=== PATIENT | male | born 1985 | race Two or more races ===

== ENCOUNTER 2016-08-26 21:21 | Emergency (ER) | payer MEDICAID ==
--- NOTE | 2016-08-26 22:44 | EDM.PDOC ---
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 2d ago when grease landed on the top of his L hand, inc'd pain today and could not work works 12h/d no f/c/d inc'd pain with flexion or touching dorsum of hand, pt thinks it may be a little bit more red today c/w yesterday - Related Data Allergies Allergy/AdvReac Type Severity Reaction Status Date / Time No Known Allergies Allergy Verified 08/26/16 21:59 Home Meds: Home Meds Cephalexin 500 mg PO QID #20 tablet 08/26/16 [Rx] Past Medical History HEENT History: Reports: Sinusitis Other HEENT History: LYMPHNOID CA Respiratory History: Reports: Bronchitis, recurrent Psychiatric History: Reports: Anxiety, Depression Oncologic (Cancer) History: Reports: Lymphoma - Past Surgical History Other HEENT Surgeries/Procedures: LYMPHNOID SURGERY Social & Family History - Family History Family Medical History: Noncontributory - Tobacco Use Smoking Status *Q: Current Every Day Smoker Years of Tobacco use: 20 Packs/Tins Daily: 2 - Recreational Drug Use Recreational Drug Use: No ED ROS GENERAL - Review of Systems Review Of Systems: See Below Constitutional: Reports: no symptoms HEENT: Reports: No symptoms Respiratory: Reports: No Symptoms Cardiovascular: Reports: No symptoms Endocrine: Reports: no symptoms GI/Abdominal: Reports: No symptoms : Reports: no symptoms Musculoskeletal: Reports: no symptoms Skin: Reports: wound Neurological: Reports: No Symptoms Psychiatric: Reports: No symptoms Hematologic/Lymphatic: Reports: no symptoms Immunologic: Reports: no symptoms Free text/narrative/comment: he has been putting H2O2 on the blisters ED EXAM, GENERAL - Physical Exam Exam: See Below Exam Limited By: No limitations General Appearance: alert, WD/WN, no apparent distress Extremities: other (dorsum of L hand shows 3 blisters of 0.75 cm, 2 are denuded , 1 has epithelium still present, all are dry, there is slight red and slight swell out 0.5 cm from the blisters without warmth that seem more c/w overuse than infection, there is nospecific slight tender of all 5 extensor tendons even though blisters are over 4th and 5th extensor tendons) Course - Vital Signs Last Recorded V/S: Last Vital Signs Temp 36.9 C 08/26/16 22:45 Pulse 75 08/26/16 22:45 Resp 14 08/26/16 22:45 BP 138/72 08/26/16 22:45 Pulse Ox 100 08/26/16 22:45 - Re-Assessments/Exams Free Text/Narrative Re-Assessment/Exam: 08/26/16 22:50 cannot exclude early cellulitis, yet there are atypical features, no fever here Departure - Departure Time of Disposition: 22:50 Disposition: Home, Self-Care 01 Condition: good Clinical Impression: Second degree burn of hand, Overuse syndrome Prescriptions: Cephalexin 500 mg PO QID #20 tablet Forms: Return to Work/School Form Additional Instructions: For infection, take cephalexin 500 mg 1 tab 4 times a day for 5 days. For pain and inflammation, take ibuprofen 200 mg 3 tabs and acetaminophen 325 mg 2 tabs 4 times a day for 5 days. No work for the next 2 days. Return to ED if your symptoms get worse, including increase in redness and pain despite the meds. See your doctor in 2 days. Call your Physician or Return to Emergency Department if: * Your condition worsens in any way. * You develop fever greater than 100.4. * You have vomiting that does not stop with medications. * You have pain that is not controlled with medications.
[2016-08-26] MEDS ORDERED: Cephalexin 500 MG Cap PO ONE (22:52)
[2016-08-26] MEDS ORDERED: Ketorolac 60 MG/2 ML SDV IM ONE (22:54)
[2016-08-26 23:20] VITALS: BP 126/70
== END 2016-08-26 23:15 | disposition home or self-care (01) ==
LOC: FB.ED 21:21
DX: T23.202A Burn of second degree of left hand, unspecified site, initial encounter (principal); F41.9 Anxiety disorder, unspecified; F32.9 Major depressive disorder, single episode, unspecified; F17.210 Nicotine dependence, cigarettes, uncomplicated; Z98.890 Other specified postprocedural states; X12.XXXA Contact with other hot fluids, initial encounter; Y92.000 Kitchen of unspecified non-institutional (private) residence as the place of occurrence of the external cause; Y99.0 Civilian activity done for income or pay
CPT/HCPCS: 96372; 99283; A9270; J1885

== ENCOUNTER 2019-07-30 18:36 | Emergency (ER) | payer MEDICAID ==
--- NOTE | 2019-07-30 19:19 | EDM.PDOC ---
ED HPI GENERAL MEDICAL PROBLEM - General Stated Complaint: SWOLLEN LYMPNODES, COUGHING UP BLOOD Time Seen by Provider: 07/30/19 19:05 Source of Information: Reports: Patient History Limitations: Reports: No Limitations - History of Present Illness INITIAL COMMENTS - FREE TEXT/NARRATIVE: 34-year-old male who reports 4 days ago began with cough and headache and then swollen lymph nodes on the left side of his neck and then on the right side of his neck and he developed aching all over, particularly all along his back. He also days ago had(that was red blood all through his sputum. He has had none since that time. No nausea or vomiting. He has had no objective fevers with chills. His symptoms seem to be worsening with time. He reports that his pain as an 8/10. It is aching and sore and all over. The throat pain is much worse with swallowing and he finds it difficult to eat or drink because of this. He also reports decreased urine output and decreased stream but or burning with urination. Area noted. He has had swollen areas on his left chest and axilla area for the past 3 years and apparently was seen at that time by Dr. Escoto and he was supposed to get follow-up in regard to his followed but he has never followed up. He reports no recent travel and he denies any contact with anyone who has had recent travel or known Coronavirus 19. There are no other associated signs or symptoms. There are no other modifying factors. 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) generalize body aches Pain Score (Numeric/FACES): 8 - Related Data Allergies Allergy/AdvReac Type Severity Reaction Status Date / Time No Known Allergies Allergy Verified 07/30/19 19:33 Past Medical History HEENT History: Reports: Sinusitis Respiratory History: Reports: Bronchitis, Recurrent Psychiatric History: Reports: Anxiety, Depression Oncologic (Cancer) History: Reports: Lymphoma - Past Surgical History Oncologic Surgical History: Reports: Other (See Below) (Resection of lymph nodes /lymphoma from right neck) Social & Family History - Tobacco Use Smoking Status *Q: Current Every Day Smoker - Caffeine Use Caffeine Use: Reports: Coffee, Energy Drinks, Soda, Tea - Alcohol Use Alcohol Use History: No Alcohol Use in Last Twelve Months: No Alcohol Use Comment: No alcohol use for greater than 1 year. - Recreational Drug Use Recreational Drug Use: Yes Drug Use in Last 12 Months: Yes Recreational Drug Type: Reports: Marijuana/Hashish - Living Situation & Occupation Living situation: Reports: Single Occupation: Unemployed ED ROS GENERAL - Review of Systems Review Of Systems: See Below Constitutional: Reports: Fever, Chills, Malaise, Fatigue HEENT: Reports: Throat Pain, Throat Swelling (Swollen lymph nodes in neck), Other (No nosebleeds no nasal congestion.) Respiratory: Reports: Shortness of Breath, Cough Cardiovascular: Reports: Lightheadedness. Denies: Chest Pain, Edema GI/Abdominal: Reports: Abdominal Pain (Some left upper quadrant pain) : Reports: Other (Decreased stream and decreased amount). Denies: Dysuria, Flank Pain, Frequency, Hematuria, Incontinence, Pain, Urgency Musculoskeletal: Reports: Other (Generalized body aches) Skin: Reports: No Symptoms Neurological: Reports: Headache Hematologic/Lymphatic: Reports: Swollen Glands Immunologic: Reports: No Symptoms ED EXAM, GENERAL - Physical Exam Exam: See Below Exam Limited By: No Limitations General Appearance: Alert, WD/WN, Moderate Distress, Other (He is awake and alert. He is fluent and appropriate in his conversation.) Eye Exam: Bilateral Eye: EOMI, Normal Inspection, PERRL, Other (He has some photophobia) Ears: Normal External Exam, Normal Canal, Hearing Grossly Normal, Normal TMs Ear Exam: Bilateral Ear: Auricle Normal, Canal Normal, TM normal Nose: Normal Inspection, Normal Mucosa, No Blood Throat/Mouth: Normal Lips, Normal Voice, No Airway Compromise, Other (Posterior pharyngeal erythema. No evidence of peritonsillar abscess.) Head: Atraumatic, Normocephalic Neck: Supple, Full Range of Motion, Lymphadenopathy (R), Lymphadenopathy (L), Tender Lateral (Bilateral). No: Tender Midline Respiratory/Chest: No Respiratory Distress, No Accessory Muscle Use, Chest Non- Tender, Other (Air movement seems to be somewhat decreased but symmetric.). No : Crackles, Rales, Rhonchi Cardiovascular: Normal Peripheral Pulses, No Edema, No Murmur, Tachycardia Peripheral Pulses: 2+: Radial (L), Radial (R), Dorsalis Pedis (L), Dorsalis Pedis (R) GI/Abdominal: Normal Bowel Sounds, Soft, Pelvis Stable, Tender (Mildly tender in left upper quadrant. I can discern no splenomegaly) Back Exam: Normal Inspection, Paraspinal Tenderness (Diffuse and all along his lumbar and thoracic spine areas.) Extremities: Normal Inspection, Normal Range of Motion, Non-Tender, No Pedal Edema, Normal Capillary Refill Neurological: Alert, Oriented, CN II-XII Intact, Normal Cognition, No Motor/ Sensory Deficits Skin Exam: Warm, Dry, Intact, Normal Color, No Rash Lymphatic: Adenopathy (Bilateral, tender anterior cervical adenopathy.) Course - Vital Signs Last Recorded V/S: Last Vital Signs Temp 36.8 C 07/30/19 21:30 Pulse 109 H 07/30/19 21:30 Resp 16 07/30/19 21:30 BP 110/56 L 07/30/19 21:30 Pulse Ox 99 07/30/19 21:30 - Orders/Labs/Meds Orders: Active Orders 24 hr Category Date Time Status Chest 2V [CR] Stat Exams 07/30/19 19:48 Taken Sodium Chloride 0.9% [Normal Saline] 1,000 ml Med 07/30/19 21:17 Active IV .BOLUS Sodium Chloride 0.9% [Normal Saline] 1,000 ml Med 07/30/19 20:00 Active IV ASDIRECTED Sodium Chloride 0.9% [Saline Flush] Med 07/30/19 19:48 Active 10 ml FLUSH ASDIRECTED PRN Isolation [COMM] Routine Oth 07/30/19 19:49 Ordered Peripheral IV Insertion Adult [OM.PC] Routine Oth 07/30/19 19:48 Ordered Medication Orders Sodium Chloride (Normal Saline) 1,000 mls @ 150 mls/hr IV ASDIRECTED PRASANNA Last Infusion: 07/30/19 21:45 Dose: 999 mls/hr Admin: 07/30/19 21:17 Dose: 150 mls/hr Sodium Chloride (Normal Saline) 1,000 mls @ 999 mls/hr IV .BOLUS ONE Stop: 07/30/19 22:17 Last Admin: 07/30/19 21:46 Dose: Sodium Chloride (Saline Flush) 10 ml FLUSH ASDIRECTED PRN PRN Reason: Keep Vein Open Labs: Laboratory Tests 07/30/19 07/30/19 07/30/19 Range/Units 20:05 20:05 20:05 WBC 8.3 (4.5-12.0) X10-3/uL RBC 4.36 (4.30-5.75) x10(6)uL Hgb 13.4 L (13.5-17.8) g/dL Hct 38.8 (30.0-51.3) % MCV 88.9 (80-96) fL MCH 30.7 (27.7-33.6) pg MCHC 34.5 (32.2-35.4) g/dL RDW 12.4 (11.5-15.5) % Plt Count 185 (125-369) X10(3)uL MPV 7.8 (7.4-10.4) fL Neut % (Auto) 79.9 (46-82) % Lymph % (Auto) 5.6 L (13-37) % [place] % (Auto) 10.8 (4-12) % Eos % (Auto) 3 (1.0-5.0) % Baso % (Auto) 1 (0-2) % Neut # (Auto) 6.6 (1.6-8.3) # Lymph # (Auto) 0.5 L (0.6-5.0) # [place] # (Auto) 0.9 (0.0-1.3) # Eos # (Auto) 0.2 (0.0-0.8) # Baso # (Auto) 0.1 (0.0-0.2) # Sodium 133 L (135-145) mmol/L Potassium 3.7 (3.5-5.3) mmol/L Chloride 96 L (100-110) mmol/L Carbon Dioxide 29 (21-32) mmol/L BUN 12 (7-18) mg/dL Creatinine 0.9 (0.70-1.30) mg/dL Est Cr Clr Drug Dosing 129.33 mL/min Estimated GFR (MDRD) > 60 (>60) BUN/Creatinine Ratio 13.3 (9-20) Glucose 107 (80-116) mg/dL Calcium 7.8 L (8.6-10.2) mg/dL Magnesium 1.6 L (1.8-2.5) mg/dL Total Bilirubin 0.3 (0.1-1.3) mg/dL AST 24 (5-25) IU/L ALT 29 (12-36) U/L Alkaline Phosphatase 72 (56-112) IU/L C-Reactive Protein 24.1 H* (0.5-0.9) mg/dL Total Protein 7.7 (6.0-8.0) g/dL Albumin 3.0 L (3.5-5.2) g/dL Globulin 4.7 g/dL Albumin/Globulin Ratio 0.6 Urine Color (YELLOW) Urine Appearance (CLEAR) Urine pH (5.0-6.5) Ur Specific [place] (1.010-1.025) Urine Protein (NEGATIVE) mg/dL Urine Glucose (UA) (NORMAL) mg/dL Urine Ketones (NEGATIVE) mg/dL Urine Occult Blood (NEGATIVE) Urine Nitrite (NEGATIVE) Urine Bilirubin (NEGATIVE) Urine Urobilinogen (NEGATIVE) mg/dL Ur Leukocyte Esterase (NEGATIVE) Urine RBC (0-5) Urine WBC (0-5) Ur Squamous Epith Cells (NS,R,O) Urine Bacteria (NS) 07/30/19 Range/Units 21:20 WBC (4.5-12.0) X10-3/uL RBC (4.30-5.75) x10(6)uL Hgb (13.5-17.8) g/dL Hct (30.0-51.3) % MCV (80-96) fL MCH (27.7-33.6) pg MCHC (32.2-35.4) g/dL RDW (11.5-15.5) % Plt Count (125-369) X10(3)uL MPV (7.4-10.4) fL Neut % (Auto) (46-82) % Lymph % (Auto) (13-37) % [place] % (Auto) (4-12) % Eos % (Auto) (1.0-5.0) % Baso % (Auto) (0-2) % Neut # (Auto) (1.6-8.3) # Lymph # (Auto) (0.6-5.0) # [place] # (Auto) (0.0-1.3) # Eos # (Auto) (0.0-0.8) # Baso # (Auto) (0.0-0.2) # Sodium (135-145) mmol/L Potassium (3.5-5.3) mmol/L Chloride (100-110) mmol/L Carbon Dioxide (21-32) mmol/L BUN (7-18) mg/dL Creatinine (0.70-1.30) mg/dL Est Cr Clr Drug Dosing mL/min Estimated GFR (MDRD) (>60) BUN/Creatinine Ratio (9-20) Glucose (80-116) mg/dL Calcium (8.6-10.2) mg/dL Magnesium (1.8-2.5) mg/dL Total Bilirubin (0.1-1.3) mg/dL AST (5-25) IU/L ALT (12-36) U/L Alkaline Phosphatase (56-112) IU/L C-Reactive Protein (0.5-0.9) mg/dL Total Protein (6.0-8.0) g/dL Albumin (3.5-5.2) g/dL Globulin g/dL Albumin/Globulin Ratio Urine Color Yellow (YELLOW) Urine Appearance Clear (CLEAR) Urine pH 5.0 (5.0-6.5) Ur Specific [place] 1.020 (1.010-1.025) Urine Protein 30 H (NEGATIVE) mg/dL Urine Glucose (UA) Normal (NORMAL) mg/dL Urine Ketones 15 H (NEGATIVE) mg/dL Urine Occult Blood Trace (NEGATIVE) Urine Nitrite Negative (NEGATIVE) Urine Bilirubin Small H (NEGATIVE) Urine Urobilinogen 8 H (NEGATIVE) mg/dL Ur Leukocyte Esterase Negative (NEGATIVE) Urine RBC 0-5 (0-5) Urine WBC 0-5 (0-5) Ur Squamous Epith Cells Occasional (NS,R,O) Urine Bacteria Rare H (NS) Meds: Medications Generic Name Dose Route Start Last Admin Trade Name Freq PRN Reason Stop Dose Admin Sodium Chloride 1,000 mls @ 150 mls/hr 07/30/19 20:00 07/30/19 21:45 Normal Saline IV 999 mls/hr ASDIRECTED PRASANNA Infusion Sodium Chloride 1,000 mls @ 999 mls/hr 07/30/19 21:17 07/30/19 21:46 Normal Saline IV 07/30/19 22:17 Not Given .BOLUS ONE Sodium Chloride 10 ml 07/30/19 19:48 Saline Flush FLUSH ASDIRECTED PRN Keep Vein Open Discontinued Medications Generic Name Dose Route Start Last Admin Trade Name Freq PRN Reason Stop Dose Admin Acetaminophen 1,000 mg 07/30/19 19:50 07/30/19 20:06 Tylenol Extra Strength PO 07/30/19 19:51 1,000 mg ONETIME ONE Administration Ceftriaxone Sodium 2 gm 07/30/19 20:36 07/30/19 20:51 Rocephin IVPUSH 07/30/19 20:37 2 gm ONETIME ONE Administration Dexamethasone 8 mg 07/30/19 20:42 07/30/19 20:50 Dexamethasone IVPUSH 07/30/19 20:43 8 mg ONETIME ONE Administration Sodium Chloride 1,000 mls @ 999 mls/hr 07/30/19 19:50 07/30/19 20:04 Normal Saline IV 07/30/19 20:50 999 mls/hr .BOLUS ONE Administration Magnesium Sulfate 2 gm/ Premix 50 mls @ 150 mls/hr 07/30/19 20:36 07/30/19 21 :15 IV 07/30/19 20:55 150 mls/hr ONETIME ONE Administration Ketorolac Tromethamine 30 mg 07/30/19 19:50 07/30/19 20:06 Toradol IVPUSH 07/30/19 19:51 30 mg ONETIME ONE Administration Penicillin G Procaine/Benzathine 2.4 millunits 07/30/19 20:42 07/30/19 20:49 Bicillin C-R 600/600 IM 07/30/19 20:43 2.4 millunits ONETIME ONE Administration - Radiology Interpretation Free Text/Narrative:: Chest x-ray PA and lateral showed no acute disease. - Re-Assessments/Exams Free Text/Narrative Re-Assessment/Exam: 07/30/19 20:38: Strep screen was positive. His CRP was elevated but his other lab tests are fairly reassuring except for a slightly decreased magnesium. His influenza screen was negative. He feels hungry now and wants something to eat. He has received Toradol IV and normal 1 g by mouth. He also has received about 250 mL of the IV bolus of normal saline. I will give the patient Rocephin 2 g IV magnesium 2 g IV. I will also give the patient Decadron 8 mg IV. After the IV fluid hydration and the IV medications, I feel that he will be able to be discharged and I will also give him Bicillin CR 2.4 million units IM prior to discharge. 07/30/19 21:15: Patient feels improved. He has eaten a snack and tolerated that well. He'll has pain with swallowing. His pulse rate is still 109 but his temp is 98.2. I will plan on giving him another liter of normal saline as a bolus and then discharging the patient. He is comfortable with this plan for discharge. Departure - Departure Time of Disposition: 22:30 Disposition: Home, Self-Care 01 Condition: Good (Improved) Clinical Impression: Acute streptococcal pharyngitis, Dehydration, moderate - Discharge Information Instructions: Strep Throat, [id number], Dehydration, Adult, [id number] Referrals: PCP,None [Primary Care Provider] - Additional Instructions: You have strep throat. You were also dehydrated. You were treated with antibiotics in the emergency department including a penicillin injection. These are all the antibiotics that you should require to treat the strep throat. You were also given Decadron, a steroid medication that is an anti-inflammatory medication, and that should help decrease the swelling and the pain in your throat. You need to rest. You need to increase your fluid intake. You should make take ibuprofen 800 mg by mouth every 8 hours as needed for fever or pain. You may also take Tylenol 1000 mg by mouth every 6 hours as needed for fever or pain. Back to the emergency department for trouble breathing, unrelenting vomiting or any other concerning sign or symptom. Sepsis Event Note - Focused Exam Vital Signs: Vital Signs Temp Temp Pulse Resp BP Pulse Ox 07/30/19 21:30 36.8 C 109 H 16 110/56 L 99 07/30/19 19:25 38.0 C 111 H 18 122/72 100 Date Exam was Performed: 07/30/19 Time Exam was Performed: 21:59 - My Orders Last 24 Hours: My Active Orders 07/30/19 19:48 Chest 2V [CR] Stat Sodium Chloride 0.9% [Saline Flush] 10 ml FLUSH ASDIRECTED PRN Peripheral IV Insertion Adult [OM.PC] Routine 07/30/19 19:49 Isolation [COMM] Routine 07/30/19 20:00 Sodium Chloride 0.9% [Normal Saline] 1,000 ml IV ASDIRECTED 07/30/19 21:17 Sodium Chloride 0.9% [Normal Saline] 1,000 ml IV .BOLUS - Assessment/Plan Last 24 Hours: My Active Orders 07/30/19 19:48 Chest 2V [CR] Stat Sodium Chloride 0.9% [Saline Flush] 10 ml FLUSH ASDIRECTED PRN Peripheral IV Insertion Adult [OM.PC] Routine 07/30/19 19:49 Isolation [COMM] Routine 07/30/19 20:00 Sodium Chloride 0.9% [Normal Saline] 1,000 ml IV ASDIRECTED 07/30/19 21:17 Sodium Chloride 0.9% [Normal Saline] 1,000 ml IV .BOLUS
[2019-07-30] MEDS ORDERED: Sodium Chloride 0.9% 10 ML Syringe FLUSH PRN (19:48)
[2019-07-30] MEDS ORDERED: Sodium Chloride 0.9% 1,000 ML IV ONE ×2 (19:50→21:17)
[2019-07-30] MEDS ORDERED: Acetaminophen 500 MG Tab PO ONE (19:50)
[2019-07-30] MEDS ORDERED: Ketorolac 30 MG/ML SDV IVPUSH ONE (19:50)
[2019-07-30] MEDS ORDERED: Sodium Chloride 0.9% 1,000 ML IV SCH (20:00)
[2019-07-30] MEDS ORDERED: cefTRIAXone 2 GM Vial IVPUSH ONE (20:36)
[2019-07-30] MEDS ORDERED: Magnesium Sulfate/Water 2 GM in Premix Bag 1 BAG IV ONE (20:36)
[2019-07-30] MEDS ORDERED: Dexamethasone 4 MG/ML SDV IVPUSH ONE (20:42)
[2019-07-30] MEDS ORDERED: Penicillin G Benzathine/Procaine 600-600 1.2 Millunits/2 ML Syringe IM ONE (20:42)
[2019-07-30 22:47] VITALS: BP 120/68; PULSE 95
--- NOTE | 2019-07-31 11:25 | CR ---
INDICATION: Difficulty breathing. CHEST TWO VIEWS: PA and lateral views of the chest were obtained 07/30/2019-no comparisons. Dextroconcave scoliosis of moderate degree is noted in the mid thoracic spine. The heart and mediastinum are unremarkable. Slightly heavy markings are noted at the lung bases, for the most part posteriorly raising question of minimal patchy bronchopneumonia in those areas versus fibrosis. No consolidating pneumonia or effusion was seen. Also noted is mild bronchial wall cuffing in the lower lung benedict, which may be on the basis of active peribronchial disease and/or fibrosis and should be correlated clinically. IMPRESSION: 1. Somewhat heavy markings with bronchial wall cuffing in the lower lung benedict raising question of active peribronchial disease-correlate clinically. 2. Scoliosis. MTDD
== END 2019-07-30 22:45 | disposition home or self-care (01) ==
LOC: FB.ED 18:36
DX: J02.0 Streptococcal pharyngitis (principal); E86.0 Dehydration; F17.200 Nicotine dependence, unspecified, uncomplicated
CPT/HCPCS: 36415; 71046; 80053; 81001; 83735; 85025; 86140; 87804; 87804-59; 87880-QW; 96361; 96365; 96372; 96375; 99284-25; A9270-GY; J0558; J0696; J1100; J1885; J3475; J7030